=== PATIENT | female | born 1975 | race Caucasian/White ===

== ENCOUNTER 2018-07-04 20:06 | Emergency (ER) | payer MEDICARE, MEDICAID ==
[2018-07-04] MEDS ORDERED: methylPREDNISolone 125 MG* 2 ML VIAL IV ONE (20:21)
[2018-07-04] MEDS ORDERED: EPINEPHrine AMP 1 MG/ML SUBCUT ONE (20:22)
--- NOTE | 2018-07-04 20:31 | ED ---
Allergic Reaction/Systemic - HPI Summary HPI Summary: bee sting, 30 minutes [id number] arrival with onset of hives , some ticking eden the throat. hx. of dyspena, and throat closing in the past with prior bee stings - History of Current Complaint Time Seen by Provider: 07/04/18 20:20 Hx Obtained From: Patient Hx Last Menstrual Period: ~09/20/16 Onset/Duration: Sudden Onset Timing: Constant Severity Initially: Moderate Severity Currently: Moderate Location: Diffuse Character: Pruritus, Hives Aggravating Factor(s): Other Alleviating Factor(s): Epinephrine Associated Signs And Symptoms: Positive: Throat Tightening - Related Hx Possible Reaction To: Insect - Allergies/Home Medications Allergies/Adverse Reactions: Allergies Allergy/AdvReac Type Severity Reaction Status Date / Time Adhesive Tape Allergy Blisters Verified 07/04/18 20:19 MS Bee Venom [Bee Venom] Allergy Anaphylatic Verified 07/04/18 20:19 Shock MS Ciprofloxacin [From Cipro] Allergy Anaphylatic Verified 07/04/18 20:19 Shock MS Erythromycin Allergy Hives Verified 07/04/18 20:19 [Erythromycin] MS Heparin [Heparin] Allergy See Comment Verified 07/04/18 20:19 MS Meperidine Allergy Hives Verified 07/04/18 20:19 [From Demerol HCl] MS Morphine [Morphine] Allergy Hives Verified 07/04/18 20:19 MS Penicillins [Penicillins] Allergy Anaphylatic Verified 07/04/18 20:19 Shock MS Quinolones [Quinolones] Allergy Unknown Verified 07/04/18 20:19 Reaction Details Home Medications: Home Medications Ustekinumab [Stelara] 45 mg SQ 07/04/18 [History] PMH/Surg Hx/FS Hx/Imm Hx Previously Healthy: No Endocrine/Hematology History: Reports: Other Endocrine/Hematological Disorders - 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, DX 2016, DR COLLINS Denies: Hx Diabetes, Hx Thyroid Disease Cardiovascular History: Denies: Hx Congestive Heart Failure, Hx Hypertension Respiratory History: Reports: Hx Asthma, Hx Pneumonia GI History: Reports: Hx Crohn's Disease, Hx Irritable Bowel Denies: Hx Ulcer Comment Only: Other GI Disorders - CHRONS/IBS/GASTROPORESIS History: Reports: Other Problems/Disorders - OVARIAN CYSTS Denies: Hx Renal Disease - Cancer History Cancer Type, Location and Year: cervical Hx Chemotherapy: No - Surgical History Surgery Procedure, Year, and Place: gall bladder, appy, tubal ligation, cervical cancer, bowel resection, removal of fatty tumor left arm - Immunization History Date of Tetanus Vaccine: Unk Date of Influenza Vaccine: 07/07 Infectious Disease History: Denies: Hx Hepatitis, Traveled Outside the [place] in Last 30 Days - Family History Known Family History: Positive: None, Respiratory Disease, Other - brother with UC - Social History Alcohol Use: None Hx Substance Use: No Substance Use Type: Reports: None Substance Use Comment - Amount & Last Used: opana 5mg po up to 4 a day. Hx Tobacco Use: Yes Smoking Status (MU): Heavy Every Day Tobacco Smoker Type: Cigarettes Amount Used/How Often: ~1 1/2 PPD Length of Time of Smoking/Using Tobacco: 24 Years Have You Smoked in the Last Year: Yes Review of Systems Constitutional: Negative Eyes: Negative Positive: Photophobia ENT: Other - throat itching Cardiovascular: Negative Positive: Cough Gastrointestinal: Negative Positive: Diarrhea Genitourinary: Negative Musculoskeletal: Negative Skin: Other - urticaria Positive: Rash All Other Systems Reviewed And Are Negative: Yes Physical Exam Triage Information Reviewed: Yes Vital Signs Reviewed: Yes Appearance: Positive: Well-Appearing Skin: Positive: Warm - diaphoretic Head/Face: Positive: Normal Head/Face Inspection Eyes: Positive: Normal ENT: Positive: Normal ENT inspection, Pharynx normal Neck: Positive: Supple Respiratory/Lung Sounds: Positive: Clear to Auscultation Cardiovascular: Positive: Normal Abdomen Description: Positive: Nontender Bowel Sounds: Positive: Present Musculoskeletal: Positive: Normal Allergic Reaction Course/Dx - Diagnoses Provider Diagnoses: Anaphylaxis due to hymenoptera venom Discharge - Sign-Out/Discharge Documenting (check all that apply): Patient Departure All imaging exams completed and their final reports reviewed: Yes - Discharge Plan Condition: Good Disposition: HOME Prescriptions: predniSONE [Prednisone 20 MG TAB] 40 mg PO DAILY #2 tablet Patient Education Materials: Anaphylaxis (ED) Referrals: Yaritza Collins MD [Primary Care Provider] - - Billing Disposition and Condition Condition: GOOD Disposition: Home
[2018-07-04] MEDS ORDERED: EPINEPHrine AMP 1 MG/ML IM ONE (20:45)
[2018-07-04] MEDS ORDERED: NS 0.9% 1000 ML* 1,000 ML IV SCH ×2 (21:00)
[2018-07-04] MEDS ORDERED: NS 0.9% 1000 ML* 1,000 ML IV ONE (21:01)
[2018-07-04 21:07] VITALS: BP 132/76
[2018-07-04] MEDS ORDERED: EPINEPHRINE 1 MG/ML 1 ML VIAL ONE (21:14)
== END 2018-07-04 21:35 | disposition home or self-care (01) ==
LOC: UCCORT 20:06
DX: F17.210 Nicotine dependence, cigarettes, uncomplicated (principal); Y92.9 Unspecified place or not applicable; T78.2XXA Anaphylactic shock, unspecified, initial encounter; Z88.1 Allergy status to other antibiotic agents; Z88.8 Allergy status to other drugs, medicaments and biological substances; Z88.0 Allergy status to penicillin; T63.441A Toxic effect of venom of bees, accidental (unintentional), initial encounter
CPT/HCPCS: 96361; 96372; 96374; 99213; G0463; J0171; J2930